=== PATIENT | male | born 1950 | race Caucasian/White ===

== ENCOUNTER 2022-05-06 11:46 | Emergency (ER) | payer MEDICARE, SELFPAY ==
[2022-05-06] VITALS (23 sets, daily range): BP systolic 124–154; BP diastolic 63–88; PULSE 58–67; RESP 18; TEMP 35.9; O2SAT 94–98; BMI 32.0
--- NOTE | 2022-05-06 12:13 | ED.GENADULT ---
HPI - General Adult General Time Seen by Provider: 12:13 Date Seen: 05/06/22 Chief complaint: Chest Pain Stated complaint: Chest pain Time Seen by Provider: 05/06/22 12:12 Source: patient, family, RN notes reviewed and old records reviewed Mode of arrival: ambulatory Limitations: no limitations History of Present Illness HPI narrative: Dany is a very pleasant 72-year-old male with a history of hypertension who comes to the emergency room for evaluation regarding chest pain. Patient notes that on WednesdayMay 04 he had the onset of epigastric pain that radiated into his chest up into his neck after eating. He rated the pain a 7/10 and sent a message to his provider at [facility] who instructed him to come in yesterday. However notes that the pain decreased to 3/10 and he had other things to do and thus he presents today. He has had intermittent discomfort such as this going on over the past year. He notes sometimes the pain will last for 2 days and then be gone. He cannot relate this to any particular food. He is not short of breath with this and when he is walking he does not have increased pain. He denies recent fever chills or cough. He has not noticed increased burping or gassiness. He has only used Pepto-Bismol occasionally and no other medications. In the remote past he had used Prilosec. Dany is thinking that this is likely heartburn but his had some major medical cardiac problems recently and of course he is worried about other things as well. Related Data Allergies Allergy/AdvReac Type Severity Reaction Status Date / Time No Known Drug Allergies Allergy Verified 05/06/22 11:57 Review of Systems Status of ROS: Reports: 10 or more systems reviewed and unremarkable except as noted in History and below Const: Denies: fever or chills ENMT: Reports: throat pain and neck pain; Denies: throat swelling, difficulty swallowing or hoarseness Cardio: Reports: chest pain; Denies: palpitations, edema, swelling of feet/ankles, lightheadedness or shortness of breath with exertion Resp: Denies: shortness of breath, cough or wheezing GI: Reports: abdominal pain and nausea; Denies: vomiting, diarrhea or difficulty swallowing : Denies: painful urination or urinary frequency Musculo: Reports: neck pain Integ/Breast: Denies: rash Neuro: Denies: headache or numbness in extremities Allergy/Immuno: Denies: throat swelling or wheezing [facility] Social History Smoking Status: Never smoker Do you use any of these nicotine containing products: None Second hand tobacco smoke exposure: No How often do you have a drink containing alcohol: 2-4 times a month How many standard drinks containing alcohol do you have on a typical day: 1 or 2 How often do you have six or more drinks on one occasion: Never AUDIT-C Alcohol total score: 2 Non-prescribed substance use: denies use service: No Exam Narrative: Exam Narrative: Dany is alert and oriented. Very pleasant gentleman in no acute distress. His eyes are with EOM full head is atraumatic heart with regular rate rhythm. Neck is supple without lymphadenopathy. Lungs are clear in all lung arita abdomen soft nontender. Lower extremities without calf pain or edema. Const: Vital Signs, click to edit/add: Vital Signs - 24 hr 05/06/22 11:57 05/06/22 12:22 05/06/22 12:23 Temperature 96.7 F L Pulse Rate 62 64 Pulse Rate [Pulse Oximeter] 64 Respiratory Rate 18 Blood Pressure 154/80 H Blood Pressure [Ri ght Upper Arm] 132/74 Pulse Oximetry 98 95 95 Oxygen Delivery Me thod Room Air 05/06/22 12:30 05/06/22 12:32 05/06/22 13:00 Temperature Pulse Rate 63 60 61 Pulse Rate [Pulse Oximeter] Respiratory Rate Blood Pressure 124/88 Blood Pressure [Ri ght Upper Arm] Pulse Oximetry 96 95 96 Oxygen Delivery Me thod 05/06/22 13:02 05/06/22 13:03 05/06/22 13:30 Temperature Pulse Rate 59 L 59 L 58 L Pulse Rate [Pulse Oximeter] Respiratory Rate Blood Pressure 136/63 Blood Pressure [Ri ght Upper Arm] Pulse Oximetry 95 96 96 Oxygen Delivery Me thod 05/06/22 13:32 05/06/22 13:33 05/06/22 14:00 Temperature Pulse Rate 62 63 59 L Pulse Rate [Pulse Oximeter] Respiratory Rate Blood Pressure 137/88 Blood Pressure [Ri ght Upper Arm] Pulse Oximetry 97 97 97 Oxygen Delivery Me thod 05/06/22 14:02 05/06/22 14:30 05/06/22 14:32 Temperature Pulse Rate 60 61 62 Pulse Rate [Pulse Oximeter] Respiratory Rate Blood Pressure 148/75 H 136/87 Blood Pressure [Ri ght Upper Arm] Pulse Oximetry 97 97 98 Oxygen Delivery Me thod 05/06/22 14:33 05/06/22 15:00 05/06/22 15:02 Temperature Pulse Rate 60 65 58 L Pulse Rate [Pulse Oximeter] Respiratory Rate Blood Pressure 153/85 H Blood Pressure [Ri ght Upper Arm] Pulse Oximetry 96 96 97 Oxygen Delivery Me thod 05/06/22 15:30 05/06/22 15:32 05/06/22 16:00 Temperature Pulse Rate 65 60 63 Pulse Rate [Pulse Oximeter] Respiratory Rate Blood Pressure 141/82 H Blood Pressure [Ri ght Upper Arm] Pulse Oximetry 96 95 98 Oxygen Delivery Me thod 05/06/22 16:02 05/06/22 16:03 Temperature Pulse Rate 58 L 67 Pulse Rate [Pulse Oximeter] Respiratory Rate Blood Pressure 143/79 H Blood Pressure [Ri ght Upper Arm] Pulse Oximetry 97 94 Oxygen Delivery Me thod Course Course Hospital Course: Differential diagnosis includes but is not limited to acute coronary disease, PE, esophageal spasm, esophagitis, chest wall pain, anxiety, gastritis, pneumonia aortic dissection. Reevaluation(s) Reevaluation #1: Patient informed that initial EKG and troponin are negative. Agrees to GI cocktail. Reevaluation #2: GI cocktail completely relieves patient's pain and is feeling much better at this time. He agrees to stay for 2nd EKG and troponin. Patient is also given omeprazole 40 mg p.o.. Vital Signs Vital signs: Initial Vital Signs Temperature 96.7 F L 05/06/22 11:57 Temperature Source Temporal Artery Scan 05/06/22 11:57 Pulse Rate 64 05/06/22 11:57 Respiratory Rate 18 05/06/22 11:57 Blood Pressure 132/74 05/06/22 11:57 Blood Pressure Mean 93 05/06/22 11:57 Blood Pressure Position Sitting 05/06/22 11:57 Pulse Oximetry 98 05/06/22 11:57 Oxygen Delivery Method 05/06/22 11:57 Vital Signs Temperature 96.7 F L 05/06/22 11:57 Pulse Rate 64 05/06/22 11:57 Respiratory Rate 18 05/06/22 11:57 Blood Pressure 132/74 05/06/22 11:57 Pulse Oximetry 98 05/06/22 11:57 Oxygen Delivery Method 05/06/22 11:57 Temperature 96.7 F L 05/06/22 11:57 Pulse Rate 67 05/06/22 16:03 Respiratory Rate 18 05/06/22 11:57 Blood Pressure 143/79 H 05/06/22 16:02 Pulse Oximetry 94 05/06/22 16:03 Oxygen Delivery Method 05/06/22 11:57 Medical Decision Making MDM Narrative Medical decision making narrative: 1. GERD causing chest pain-patient noted to be pain free at this time after GI cocktail. Would recommend that he continue with omeprazole 40 mg daily until seen by GI. I do think that given his age and the significant discomfort that he was describing earlier he should probably evaluated for possible endoscopy. Fortunately no evidence of acute coronary disease tonight, D-dimer negative and no evidence of PE, chest x-ray reassuring with no evidence of pneumonia. 2. Disposition-home at this time. Return for worsening symptoms and as needed. Medical Records Medical records reviewed: Yes I reviewed the patient's medical records Lab Data Lab results reviewed: Yes I reviewed the patient's lab results Labs: Lab Results 05/06/22 05/06/22 05/06/22 Range/Units 12:46 12:46 12:46 WBC 4.91 (4.50-11.00) K/uL RBC 4.73 (4.30-5.90) m/uL Hgb 14.4 (13.5-17.5) gm/dL Hct 41.3 (37.0-53.0) % MCV 87 (80-100) fL MCH 30 (26-34) pg MCHC 35 (32-36) gm/dL RDW Coeff of Pradeep 13.1 (11.5-15.5) % Plt Count 237 (140-440) K/uL Neut % (Auto) 56.6 (42.0-72.0) % Lymph % (Auto) 32.8 (20-44) % [place] % (Auto) 6.9 (0.0-11.0) % Eos % (Auto) 3.1 (0.0-7.0) % Baso % (Auto) 0.6 (0.0-3.0) % Neut # (Auto) 2.78 (1.7-7.0) K/uL Lymph # (Auto) 1.61 (0.90-2.90) K/uL [place] # (Auto) 0.30 (0.00-0.90) K/UL Eos # (Auto) 0.15 (0.00-0.50) K/uL Baso # (Auto) 0.03 (0.00-0.30) K/uL D-Dimer Quant (PE/DVT) < 0.27 (0.00-0.50) ug/ml Sodium 140 (135-149) mmol/L Potassium 3.8 (3.6-5.1) mmol/L Chloride 108 (96-114) mmol/L Carbon Dioxide 25 (20-32) mmol/L BUN 18 (7-30) mg/dL Creatinine 0.7 (0.5-1.5) mg/dL Estimated Creat Clear 62.43 Estimated GFR 98 ml/min Glucose 101 (60-115) mg/dL Calcium 9.5 (8.4-10.6) mg/dL Total Bilirubin 0.8 (0.1-1.5) mg/dL AST 33 (12-35) U/L ALT 42 (4-50) U/L Alkaline Phosphatase 58 (40-150) U/L Total Protein 7.2 (6.0-8.3) g/dL Albumin 4.5 (3.3-5.0) g/dL Amylase 69 (18-89) U/L Lipase 111 (23-300) U/L Urine Color (Yellow) Urine Appearance (Clear) Urine pH (5.0-8.5) Ur Specific [place] (1.000-1.030) Urine Protein (Negative) Urine Glucose (UA) (Negative) Urine Ketones (Negative) Urine Blood (Negative) Urine Nitrite (Negative) Urine Bilirubin (Negative) Urine Urobilinogen (0.2-1.0) Ur Leukocyte Esterase (Negative) Urine RBC (0-2) Urine WBC (0-5) Ur Squamous Epith Cells (None-Few) Urine Bacteria (None) POC Troponin I (0.01-0.04) ng/ml 05/06/22 05/06/22 05/06/22 Range/Units 12:46 12:52 15:42 WBC (4.50-11.00) K/uL RBC (4.30-5.90) m/uL Hgb (13.5-17.5) gm/dL Hct (37.0-53.0) % MCV (80-100) fL MCH (26-34) pg MCHC (32-36) gm/dL RDW Coeff of Pradeep (11.5-15.5) % Plt Count (140-440) K/uL Neut % (Auto) (42.0-72.0) % Lymph % (Auto) (20-44) % [place] % (Auto) (0.0-11.0) % Eos % (Auto) (0.0-7.0) % Baso % (Auto) (0.0-3.0) % Neut # (Auto) (1.7-7.0) K/uL Lymph # (Auto) (0.90-2.90) K/uL [place] # (Auto) (0.00-0.90) K/UL Eos # (Auto) (0.00-0.50) K/uL Baso # (Auto) (0.00-0.30) K/uL D-Dimer Quant (PE/DVT) (0.00-0.50) ug/ml Sodium (135-149) mmol/L Potassium (3.6-5.1) mmol/L Chloride (96-114) mmol/L Carbon Dioxide (20-32) mmol/L BUN (7-30) mg/dL Creatinine (0.5-1.5) mg/dL Estimated Creat Clear Estimated GFR ml/min Glucose (60-115) mg/dL Calcium (8.4-10.6) mg/dL Total Bilirubin (0.1-1.5) mg/dL AST (12-35) U/L ALT (4-50) U/L Alkaline Phosphatase (40-150) U/L Total Protein (6.0-8.3) g/dL Albumin (3.3-5.0) g/dL Amylase (18-89) U/L Lipase (23-300) U/L Urine Color Yellow (Yellow) Urine Appearance Clear (Clear) Urine pH 5.5 (5.0-8.5) Ur Specific [place] 1.025 (1.000-1.030) Urine Protein Negative (Negative) Urine Glucose (UA) Negative (Negative) Urine Ketones Negative (Negative) Urine Blood Negative (Negative) Urine Nitrite Negative (Negative) Urine Bilirubin Negative (Negative) Urine Urobilinogen 0.2 (0.2-1.0) Ur Leukocyte Esterase Negative (Negative) Urine RBC 0-2 (0-2) Urine WBC 0-2 (0-5) Ur Squamous Epith Cells None (None-Few) Urine Bacteria None (None) POC Troponin I 0.01 0.01 (0.01-0.04) ng/ml Imaging Data Chest x-ray: Attestation: I have reviewed the pertinent imaging results. My impression: No obvious infiltrates. Radiologist's impression: ardiovascular and mediastinum:? Heart size and vasculature are normal in caliber and appearance.? Lungs and pleural spaces:? Lungs are clear.? No sign of infiltrate or mass. ?No sign of pleural effusion.? No pneumothorax.? Bones and soft tissues:? No significant findings. IMPRESSION: No acute or significant findings. ECG Data Attestation: I personally reviewed and interpreted this ECG as follows: Interpretation: EKG 1. By my read shows sinus rhythm at a rate of 62. Of first-degree AV block with OK interval of 21.2 no evidence of acute ST or T-wave changes. EKG EKG 2. By my read shows sinus bradycardia at a rate of 57. First-degree AV block continues with a OK interval of 22.[address] or T-wave changes are noted Discharge Plan Discharge Clinical Impression: Chest pain due to GERD Patient Disposition: Home, Self-Care Condition: Improved Additional Instructions: Recommend continuing omeprazole 40 mg daily until seen by primary MD. recommend at that time consideration for endoscopy. Return to the emergency room for worsening symptoms. Follow Up/Referrals: Provider,Not a Local [Referring] - Stand Alone Forms: [employer] Info Instructions
[2022-05-06 12:59] LABS: Troponin, Point-of-Care* 0.01 ng/ml (0.01-0.04)
[2022-05-06 13:04] LABS: Appearance Urine Clear (Clear); Bilirubin Urine Negative (Negative); Blood Urine Negative (Negative); Color Urine Yellow (Yellow); Glucose Urine Negative (Negative); Ketones Urine Negative (Negative); Leukocyte Esterase Urine Negative (Negative); Nitrite Urine Negative (Negative); Protein Urine Negative (Negative); Specific Gravity Urine 1.025 (1.000-1.030); Urobilinogen Urine 0.2 (0.2-1.0); pH Urine 5.5 (5.0-8.5)
[2022-05-06 13:07] LABS: Basophils Absolute Auto 0.03 K/uL (0.00-0.30); Basophils Percent Auto 0.6 % (0.0-3.0); Eosinophils Absolute Auto 0.15 K/uL (0.00-0.50); Eosinophils Percent Auto 3.1 % (0.0-7.0); Hematocrit 41.3 % (37.0-53.0); Hemoglobin* 14.4 gm/dL (13.5-17.5); Lymphocytes Absolute Auto 1.61 K/uL (0.90-2.90); Lymphocytes Percent Auto 32.8 % (20-44); Mean Corpuscular HGB Conc 35 gm/dL (32-36); Mean Corpuscular Hemoglobin 30 pg (26-34); Mean Corpuscular Volume 87 fL (80-100); Monocytes Percent Auto 6.9 % (0.0-11.0); Neutrophils Absolute Auto 2.78 K/uL (1.7-7.0); Neutrophils Percent Auto 56.6 % (42.0-72.0); Platelet Count* 237 K/uL (140-440); RDW Coefficient of Variation % 13.1 % (11.5-15.5); Red Blood Count 4.73 m/uL (4.30-5.90); White Blood Count* 4.91 K/uL (4.50-11.00)
[2022-05-06 13:16] LABS: Slide Review Reflex No
[2022-05-06 13:18] LABS: Albumin* 4.5 g/dL (3.3-5.0); Chloride* 108 mmol/L (96-114)
[2022-05-06 13:19] LABS: Potassium* 3.8 mmol/L (3.6-5.1); Sodium* 140 mmol/L (135-149)
[2022-05-06 13:21] LABS: Amylase* 69 U/L (18-89); Carbon Dioxide* 25 mmol/L (20-32); Creatinine* 0.7 mg/dL (0.5-1.5); Est. Creatinine Clearance* 62.43; Estimated Glomerular Filt Rate 98 ml/min
[2022-05-06 13:22] LABS: Alanine Aminotransferase* 42 U/L (4-50); Alkaline Phosphatase* 58 U/L (40-150); Aspartate Amino Transferase* 33 U/L (12-35); Bilirubin Total* 0.8 mg/dL (0.1-1.5); Blood Urea Nitrogen* 18 mg/dL (7-30); Calcium* 9.5 mg/dL (8.4-10.6); Glucose* 101 mg/dL (60-115); Lipase* 111 U/L (23-300); Total Protein* 7.2 g/dL (6.0-8.3)
[2022-05-06] MEDS: GI COCKTAIL (VISC LIDO/ANTACID) 30 ML PO (13:34)
[2022-05-06 13:41] LABS: D Dimer Quantitative* < 0.27 ug/ml (0.00-0.50)
[2022-05-06 13:46] LABS: RBC Urine 0-2 (0-2); WBC Urine 0-2 (0-5)
--- NOTE | 2022-05-06 13:48 | CRLHL7_ITS ---
For Patients: As a result of the Century Cures Act, medical imaging exams and procedure reports are released immediately into your electronic medical record. You may view this report before your referring provider. If you have questions, please contact your health care provider. INDICATION: Chest pain. TECHNIQUE: Chest 1 views. COMPARISON: None. FINDINGS: Cardiovascular and mediastinum: Heart size and vasculature are normal in caliber and appearance. Lungs and pleural spaces: Lungs are clear. No sign of infiltrate or mass. No sign of pleural effusion. No pneumothorax. Bones and soft tissues: No significant findings. IMPRESSION: No acute or significant findings. Dictated by [place] MD @ 05/06/2022 2:11:22 PM (Electronically Signed)
--- NOTE | 2022-05-06 14:08 | ED.NURSE ---
Pt reported improvement in epigastric pain after drinking GI cocktail. Dr. Cantu notified.
[2022-05-06] MEDS: OMEPRAZOLE 20 MG CAPSULE DR 40 MG PO (15:31)
[2022-05-06 15:56] LABS: Troponin, Point-of-Care* 0.01 ng/ml (0.01-0.04)
== END 2022-05-06 16:25 | disposition home or self-care (01) ==
PROVIDERS: Emergency Provider Family Medicine; PCP Family Medicine
DX: R07.9 Chest pain, unspecified (principal); K21.9 Gastro-esophageal reflux disease without esophagitis
CPT/HCPCS: 36415; 71045; 80053; 81001; 82150; 83690; 84484; 85025; 85379; 93005; 99284; A9270

== ENCOUNTER 2024-02-08 13:45 | Outpatient (RCR) | payer MEDICARE, SELFPAY | END 2024-02-08 15:20 | disposition home or self-care (01) | PROVIDERS: PCP Family Medicine; Visit Provider Family Medicine | DX: M25.531 Pain in right wrist (principal); M25.639 Stiffness of unspecified wrist, not elsewhere classified; R53.1 Weakness; Z51.89 Encounter for other specified aftercare | CPT/HCPCS: 97035; 97110; 97140; 97165; X5282 ==